=== PATIENT | female | born 1985 | race Caucasian/White ===

== ENCOUNTER → 2022-05-05 14:06 | Outpatient (BNVA) | payer OTHER, SELFPAY | PROVIDERS: Family Provider Family Medicine; PCP Family Medicine; Visit Provider Family Medicine | DX: Z01.419 Encounter for gynecological examination (general) (routine) without abnormal findings (principal); Z80.3 Family history of malignant neoplasm of breast | CPT/HCPCS: 87624 ==

== ENCOUNTER → 2022-06-13 13:20 | Outpatient (BNVA) | payer OTHER, SELFPAY | PROVIDERS: Family Provider Family Medicine; PCP Family Medicine; Visit Provider Family Medicine | DX: Z34.80 Encounter for supervision of other normal pregnancy, unspecified trimester (principal) | CPT/HCPCS: 87086 ==

== ENCOUNTER → 2022-06-27 11:21 | Outpatient (BNVA) | payer OTHER, SELFPAY | PROVIDERS: Family Provider Family Medicine; PCP Family Medicine; Visit Provider Family Medicine | DX: Z34.80 Encounter for supervision of other normal pregnancy, unspecified trimester (principal) | CPT/HCPCS: 76801 ==

== ENCOUNTER → 2022-07-08 12:24 | Outpatient (BNVA) | payer OTHER, SELFPAY | PROVIDERS: Family Provider Family Medicine; PCP Family Medicine; Visit Provider Clinical Nurse Specialist Adult Health | DX: J02.9 Acute pharyngitis, unspecified (principal) | CPT/HCPCS: 87880 ==

== ENCOUNTER → 2022-07-13 09:34 | Outpatient (BNVA) | payer OTHER, MEDICAID, SELFPAY | PROVIDERS: Family Provider Family Medicine; PCP Family Medicine; Visit Provider Family Medicine | DX: Z34.80 Encounter for supervision of other normal pregnancy, unspecified trimester (principal); Z01.419 Encounter for gynecological examination (general) (routine) without abnormal findings | CPT/HCPCS: 84443; 85025; 86592; 86762; 86803; 86850; 86900; 87340; 87491; 87591; 87806 ==

== ENCOUNTER → 2022-08-23 12:06 | Outpatient (BNVA) | payer MEDICAID, SELFPAY | PROVIDERS: Family Provider Family Medicine; PCP Family Medicine; Visit Provider Family Medicine | DX: Z34.80 Encounter for supervision of other normal pregnancy, unspecified trimester (principal) | CPT/HCPCS: 80307; 81000; 81511; 87086 ==

== ENCOUNTER → 2022-08-29 09:00 | Outpatient (BNVA) | payer MEDICAID, SELFPAY | PROVIDERS: Family Provider Family Medicine; PCP Family Medicine; Visit Provider Family Medicine | DX: Z34.80 Encounter for supervision of other normal pregnancy, unspecified trimester (principal); Z3A.00 Weeks of gestation of pregnancy not specified | CPT/HCPCS: 76805 ==

== ENCOUNTER → 2022-10-20 09:22 | Outpatient (BNVA) | payer MEDICAID, SELFPAY | PROVIDERS: Family Provider Family Medicine; PCP Family Medicine; Visit Provider Family Medicine | DX: Z34.80 Encounter for supervision of other normal pregnancy, unspecified trimester (principal); L29.9 Pruritus, unspecified; Z51.81 Encounter for therapeutic drug level monitoring | CPT/HCPCS: 80053; 82010; 82950; 85025 ==

== ENCOUNTER → 2022-12-22 08:55 | Outpatient (BNVA) | payer OTHER, MEDICAID, SELFPAY | PROVIDERS: PCP Family Medicine; Visit Provider Family Medicine | DX: Z34.80 Encounter for supervision of other normal pregnancy, unspecified trimester (principal) | CPT/HCPCS: 87081; 87184 ==

== ENCOUNTER 2023-01-18 08:21 | Inpatient (IN) | payer OTHER, MEDICAID, SELFPAY ==
[2023-01-18] VITALS (50 sets, daily range): BP systolic 115–194; BP diastolic 61–94; PULSE 73–116; RESP 15–16; TEMP 36.1–36.5; BMI 24.2
--- NOTE | 2023-01-18 08:29 | PM.HP ---
Providers/Chief Complaint Admitting Physician: Toni Guadarrama MD Primary Care Provider: Toni Guadarrama MD Chief Complaint: induction History of Present Illness Ellen Lugo is a 37 year old @ 40.2 weeks by LMP c/w 1st TM US. Preg c/b with clavicular fracture without shoulder dystocia, h/o macrosomic , depression off of meds, GBS positive. The patient presents to labor and delivery triage for a scheduled induction of labor due to postdates. She feels well at this time. She denies any fevers, chest pain, shortness of breath, nausea, vomiting, constipation, diarrhea, dysuria. She denies leakage of fluid, vaginal bleeding. She admits to mild nasal congestion after being outside yesterday. Review of Systems Narrative: See HPI. Medications/Allergies Home Medications Medication Instructions Recorded Confirmed Last Taken Type cetirizine 10 mg tablet (All Day 10 mg PO DAILY PRN Allergy Symptoms 06/13/22 01/18/23 01/18/23 07:00 History Allergy (cetirizine)) vitamin with calcium 1 tab PO DAILY 06/13/22 01/18/23 01/17/23 History no.72-iron 27 mg-folic acid 1 mg tablet ( Vitamins Plus Low Iron) ferrous sulfate 325 mg (65 mg 325 mg PO DAILY #30 tabs 10/24/22 01/18/23 01/17/23 Rx iron) tablet potassium chloride 10 mEq 10 meq PO DAILY #30 tabs 12/23/22 01/18/23 01/17/23 Rx tablet,extended release (Klor-Con) Allergies Allergy/AdvReac Type Severity Reaction Status Date / Time codeine Allergy Mild ADR-Itching Verified 07/08/22 10:05 penicillin G Allergy Mild ADR-Itching Verified 07/08/22 10:05 PFSH Acute PFSH: Medical History Family hx-breast malignancy Surgical History History of lymph node biopsy Left neck as a child Family History Sister Cancer, Onset Age: 37 History of leukemia (Age 10), breast cancer s/p bilateral mastectomy (Age 37), thyroid cancer Social History Smoking and tobacco status: never smoked Alcohol intake: never Marital status: Additional social history: First committed suicide. Was on drugs. Now remarried. Female Reproductive History: : 4 Vitals/I&O/Wt Last Vital Signs Pulse 116 H 01/18/23 08:21 BP 144/94 01/18/23 08:21 Physical Exam Narrative: General: Alert and oriented x3 Eyes: Pupils equal round and reactive to light and accommodation Mouth: Mucous membranes moist, pharynx non-erythematous Cardiac: Regular rate and rhythm without murmurs Lungs: Clear to auscultation bilaterally without wheezes, crackles or rhonchi Abdomen: Soft, non-tender, fundus consistent with gestational age Extremities: Trace edema in the bilateral lower extremities : Cervix is 3/50/-3/soft/vertex A&P Assessment and plan (1) Supervision of normal intrauterine in multigravida: The patient is doing well at this time. We will proceed with induction of labor as scheduled. We will start with IV Pitocin. The patient is GBS positive. The patient is allergic to penicillin. We will treat GBS with cefazolin and plan for watching for 48 hours afterwards. All questions were answered. Patient and are in agreement with current plan of care. Attestations Medical Necessity Statement*: The patient will be here for greater than 2 midnights due to routine intrapartum and management of labor and delivery. Coding Level of Care Code Acute Code for Chg Fwd Diagnoses Supervision of normal intrauterine in multigravida Z34.80
[2023-01-18 09:02] LABS: Basophils % 0.3 %; Eosinophils # 0.1 10^3/uL (0.0-0.8); Eosinophils % 0.9 %; Hematocrit 37.1 % (37.0-47.0); Hemoglobin 12.5 g/dL (11.5-15.3); Lymphocytes % 13.2 %; Mean Corpuscular HGB Conc 33.7 g/dL (30.0-36.0); Mean Corpuscular Hemoglobin 29.8 pg (28.0-34.0); Mean Corpuscular Volume 88.5 fl (81-99); Mean Platelet Volume 10.3 fL (7.4-10.4); Monocytes # 0.3 10^3/uL (0.2-0.9); Monocytes % 4.3 %; Neutrophils # 6.37 10^3/uL (1.8-7.7); Neutrophils % 80.8 %; Nucleated Red Blood Cells % 0 %; Platelet Count 203 10^3/cmm (130-400); Red Blood Count 4.19 10^6/uL (4.1-5.3); Red Cell Distribution Width 15.2 % (12.1-15.1); White Blood Count 7.9 10^3/uL (4.0-10.0)
[2023-01-18] MEDS: dextrose 5%-lactated ringers 1,000 ML 125 ML IV (09:09)
[2023-01-18] MEDS: ceFAZolin 2,000 MG in sodium chloride 0.9% (plus) 50 ML 100 MG IV (09:11)
[2023-01-18] MEDS: lactated ringers 1,000 ML 999 ML IV (16:15)
[2023-01-18] MEDS: ceFAZolin 1,000 MG in sodium chloride 0.9% (plus) 50 ML 100 MG IV (17:20)
--- NOTE | 2023-01-18 18:20 | P.PCNOB_ITS ---
Delivery Note: Date of delivery: January 18, 2023 Pre-delivery diagnoses: 1. Intrauterine at 40.2 weeks gestation 2. History of macrosomic infant 3. Depression off of medication 4. GBS positive Post-delivery diagnoses: 1. Intrauterine status post spontaneous vaginal delivery at 40.2 weeks gestation 2. History of macrosomic 3. Depression off of medication 4. GBS positive 5. Delivery of healthy female weighing 8 pounds 6 ounces with Apgars of 8 and 9 Procedure: Spontaneous vaginal delivery Delivering Physician: Toni Guadarrama MD Estimated blood loss (mL): 100 Pre-Delivery Course: Ellen Lugo is a 37 year old @ 40.2 weeks by LMP c/w 1st TM US. Preg c/b with clavicular fracture without shoulder dystocia, h/o macrosomic infant, depression off of meds, GBS positive. The patient presented for an induction of labor secondary to postdates on the morning of 01/18/2023. She was 3 cm dilated upon presentation. The patient was started on IV Pitocin for induction of labor. She was started on cefazolin for GBS prophylaxis. She made steady change initially and was getting set up for a laboring epidural. She then quickly changed to 7 cm and then to complete. She was complete by 1728 on 01/18/2023. Delivery: A bulging bag of fluid was noted and AROM was performed at 1742 on 01/18/2023. The patient began pushing at 1743 on 01/18/2023. The patient pushed well and the infant delivered in the OA position at 1746 on 01/18/2023. The right shoulder was the anterior shoulder, however it was rotated to the right. The left shoulder was delivered first due to the right shoulder not delivering well with downward pressure. The right shoulder was then delivered without complication. No nuchal cord was noted. The infant was crying immediately upon delivery and the infant's mouth and nose were bulb suctioned by myself. The was placed on the mother's lap for the nurses were waiting to care for her. Cord blood was obtained. The cord was then drained of blood and traction was placed on umbilical cord. The placenta delivered without complication at 1752 on 01/18/2023. The placenta was noted to be intact with a central umbilical cord insertion site. The vaginal wall was inspected and there was a small perineal abrasion. The cervix was inspected and no lacerations were noted. The patient's bleeding decreased well. Her uterus was noted to be firm and midline. Currently both the mother and infant are doing well. History History History 4 Term 4 0 Miscarriages/Ectopic 0 Living Children 4 Past Pregnancies Del. Date GA/Weeks Outcome Route Wt Inf Gender Labor Lgth Comp. Anesth esia Location 04/10/06 40 live - full term Vaginal 7 lb 3 oz Female 18 [facility] 06/12/08 40 live - full term Vaginal 10 lb Male 8 [facility] 04/08/17 40 live - full term Vaginal 7 lb 6 oz Male [facility] 01/18/23 40 live - full term Vaginal 8 lb 6 oz Female 8 [facility] Delivery Date: 06/12/08 Last Updated by: Toni Guadarrama MD Broken Clavicle - No shoulder dystocia Delivery Date: 04/08/17 Last Updated by: Toni Guadarrama MD No complications. Delivery Date: 01/18/23 Last Updated by: Toni Guadararma MD Rapid change from 5 to complete A&P Assessment and plan (1) Spontaneous vaginal delivery: Coding Level of Care Code Acute Code for Chg Fwd Diagnoses Spontaneous vaginal delivery O80
[2023-01-18] MEDS: lanolin oint 7 gm 1 APPLIC TOPICAL (19:28)
[2023-01-18] MEDS: ibuprofen 800 mg tablet PO (19:28)
[2023-01-18] MEDS: benzocaine-menthol 78 gm Canister 1 SPRAY TOPICAL (19:29)
[2023-01-19 01:45] VITALS: BP 121/81; PULSE 76; RESP 16
[2023-01-19] MEDS: acetaminophen 325 mg Tablet 650 MG PO (02:44)
[2023-01-19 03:45] VITALS: BP 116/73; PULSE 77; RESP 18
[2023-01-19 05:51] LABS: Hematocrit 34.5 % (37.0-47.0); Hemoglobin 11.6 g/dL (11.5-15.3); Mean Corpuscular HGB Conc 33.6 g/dL (30.0-36.0); Mean Corpuscular Hemoglobin 30.1 pg (28.0-34.0); Mean Corpuscular Volume 89.4 fl (81-99); Mean Platelet Volume 9.9 fL (7.4-10.4); Platelet Count 196 10^3/cmm (130-400); Red Blood Count 3.86 10^6/uL (4.1-5.3); Red Cell Distribution Width 15.2 % (12.1-15.1); White Blood Count 12.4 10^3/uL (4.0-10.0)
[2023-01-19] MEDS: ibuprofen 800 mg tablet PO ×2 (09:37→14:32)
[2023-01-19] MEDS: prenatal vitamin Capsule 1 CAP PO (09:37)
[2023-01-19] MEDS: docusate sodium 100 mg Capsule PO (09:37)
[2023-01-19 10:09] VITALS: BP 112/87; PULSE 117; RESP 18; TEMP 36.8; O2SAT 98
[2023-01-19 16:30] VITALS: BP 123/84; PULSE 86; RESP 16; TEMP 36.6; O2SAT 98
--- NOTE | 2023-01-19 19:23 | PM.DCS ---
Discharge Providers Date of Admission: 01/18/23 08:21 Date of Discharge: January 19, 2023 Attending Provider at Admission: Toni Guadarrama MD Attending Provider at Discharge: Toni Guadarrama MD Primary Care Provider: Toni Guadarrama MD Diagnoses at Discharge Discharge Diagnosis (1) Spontaneous vaginal delivery: Status: Resolved Other Information Additional DC diagnoses/information: 1.? Intrauterine status post spontaneous vaginal delivery at 40.2 weeks gestation 2.? History of macrosomic 3.? Depression off of medication 4.? GBS positive 5.? Delivery of healthy female weighing 8 pounds 6 ounces with Apgars of 8 and 9 Reason for Visit Reason for Visit: induction Brief History: Ellen Lugo is a 37 year old @ 40.2 weeks by LMP c/w 1st TM US. Preg c/b with clavicular fracture without shoulder dystocia, h/o macrosomic infant, depression off of meds, GBS positive. The patient presented for an induction of labor secondary to postdates on the morning of 01/18/2023.? She was 3 cm dilated upon presentation.? ? Procedure: Spo ntaneous vaginal d elivery ? Deliveri ng Physician: Seun Guadarrama MD ? E stimated blood los s (mL): 100 Pre-Delivery Cours e:?? Delivery:?? Hospital Course Hospital Course The patient was started on IV Pitocin for induction of labor.? She was started on cefazolin for GBS prophylaxis.? She made steady change initially and was getting set up for a laboring epidural.? She then quickly changed to 7 cm and then to complete.? She was complete by 1728 on 01/18/2023. A bulging bag of fluid was noted and AROM was performed at 1742 on 01/18/2023.? The patient began pushing at 1743 on 01/18/2023.? The patient pushed well and the delivered in the OA position at 1746 on 01/18/2023.? The right shoulder was the anterior shoulder, however it was rotated to the right.? The left shoulder was delivered first due to the right shoulder not delivering well with downward pressure.? The right shoulder was then delivered without complication.? No nuchal cord was noted.? The was crying immediately upon delivery and the infant's mouth and nose were bulb suctioned by myself.? The infant was placed on the mother's lap for the nurses were waiting to care for her.? Cord blood was obtained.? The cord was then drained of blood and traction was placed on umbilical cord.? The placenta delivered without complication at 1752 on 01/18/2023.? The placenta was noted to be intact with a central umbilical cord insertion site.? The vaginal wall was inspected and there was a small perineal abrasion.? The cervix was inspected and no lacerations were noted.? The patient's bleeding decreased well.? Her uterus was noted to be firm and midline.? the patient has done well without complications. Her pain is well controlled. Her bleeding is decreasing well. The patient is ambulating, voiding, passing gas and tolerating food by mouth. All questions were answered. Routine discharge instructions were discussed. The patient is in agreement with discharge home at this time and will follow up with me at 6 weeks or sooner if needed. Physical Exam Narrative: General: Alert and oriented x3 Cardiac: Regular rate and rhythm without murmurs Lungs: Clear to auscultation bilaterally without wheezes, crackles or rhonchi Abdomen: Soft, mild tenderness over uterus. The uterus is firm and 2 cm below the umbilicus. Extremities: Trace edema in the bilateral lower extremities Discharge Data Studies Completed and Pending Laboratory Results WBC 12.4 10^3/uL (4.0-10.0) H 01/19/23 05:45 RBC 3.86 10^6/uL (4.1-5.3) L 01/19/23 05:45 Hgb 11.6 g/dL (11.5-15.3) 01/19/23 05:45 Hct 34.5 % (37.0-47.0) L 01/19/23 05:45 MCV 89.4 fl (81-99) 01/19/23 05:45 MCH 30.1 pg (28.0-34.0) 01/19/23 05:45 MCHC 33.6 g/dL (30.0-36.0) 01/19/23 05:45 RDW 15.2 % (12.1-15.1) H 01/19/23 05:45 Plt Count 196 10^3/cmm (130-400) 01/19/23 05:45 MPV 9.9 fL (7.4-10.4) 01/19/23 05:45 Neut % (Auto) 80.8 % 01/18/23 08:45 Lymph % (Auto) 13.2 % 01/18/23 08:45 [place] % (Auto) 4.3 % 01/18/23 08:45 Eos % (Auto) 0.9 % 01/18/23 08:45 Baso % (Auto) 0.3 % 01/18/23 08:45 Neut # (Auto) 6.37 10^3/uL (1.8-7.7) 01/18/23 08:45 Lymph # (Auto) 1.0 10^3/uL (0.8-4.8) 01/18/23 08:45 [place] # (Auto) 0.3 10^3/uL (0.2-0.9) 01/18/23 08:45 Eos # (Auto) 0.1 10^3/uL (0.0-0.8) 01/18/23 08:45 Baso # (Auto) 0.0 10^3/uL (0.0-0.1) 01/18/23 08:45 Nucleated RBC % (auto) 0 % 01/18/23 08:45 Nucleated RBCs # 0.0 /100WBC 01/18/23 08:45 Vitals Last Vital Signs Temp 97.9 F 01/19/23 16:30 Pulse 86 01/19/23 16:30 Resp 16 01/19/23 16:30 BP 123/84 01/19/23 16:30 Pulse Ox 98 01/19/23 16:30 O2 Del Method Room Air 01/19/23 10:09 Discharge Plan Discharge Patient Disposition: Home Condition: Good Prescriptions: New ibuprofen 800 mg Tablet 800 mg PO TID Qty: 30 0RF Continued ferrous sulfate 325 mg (65 mg iron) tablet 325 mg PO DAILY Qty: 30 2RF Vitamin Plus Low Iron 27 mg iron- 1 mg tablet 1 tab PO DAILY cetirizine [All Day Allergy (cetirizine)] 10 mg tablet 10 mg PO DAILY PRN (Reason: Allergy Symptoms) Discontinued potassium chloride [Klor-Con 10] 10 mEq tablet extended release 10 meq PO DAILY Qty: 30 3RF Discharge Orders: Discharge Order (Routine); Ordered 01/19/23 Ordered By: Toni Guadarrama Referrals: Toni Guadarrama MD [Primary Care Provider] - 6 Weeks Discharge Diet: Regular Discharge Activity: Increase activity as tolerated Patient Instructions: Depression (DC), Bleeding (DC), Preeclampsia and Eclampsia After Delivery (GEN), Hemorrhage (DC), OB Discharge Report, OB Feeding Plan, OB Care at Home, Opioid Safety, OB Home Care, OB Proud Parent Packet, OB Vaginal Deliveries Activity Restrictions/Additional Instructions: -Nothing per vagina for 6 weeks. -Showers are recommended instead of baths for the first 6 weeks. -If you have any concerns prior to your appointment, please feel free to contact Dr. Guadarrama's office for sooner evaluation. -Call the clinic on 01/20/23 to make a Monday follow up appointment with Dr. Guadarrama. Discharge Attestations Time Spent in Discharge Care*: less than 30 min Quality Metrics Clinical Quality Measures [ No reported AMI, CVA or VTE this stay] Coding Level of Care Code Acute Code for Chg Fwd Diagnoses Spontaneous vaginal delivery O80
[2023-01-19 19:33] VITALS: BP 124/86; PULSE 93; RESP 16; TEMP 36.7; O2SAT 99
== END 2023-01-19 20:13 | disposition home or self-care (01) | DRG 807 ==
LOC: OBGYN 12:32 → OPOB 01-23 07:19
PROVIDERS: Admitting Provider Family Medicine; PCP Family Medicine; Visit Provider Family Medicine
DX: O48.0 Post-term pregnancy (principal); Z37.0 Single live birth; O99.824 Streptococcus B carrier state complicating childbirth; O99.344 Other mental disorders complicating childbirth; F32.A Depression, unspecified; Z3A.40 40 weeks gestation of pregnancy; Z87.59 Personal history of other complications of pregnancy, childbirth and the puerperium
CPT/HCPCS: 36415; 59025; 59409; 85025; 85027; 99211; J0690; J7040; J7120; J7121

== ENCOUNTER → 2024-02-08 10:24 | Outpatient (BNVA) | payer OTHER, SELFPAY | PROVIDERS: PCP Family Medicine; Visit Provider Family Medicine | DX: Z34.90 Encounter for supervision of normal pregnancy, unspecified, unspecified trimester (principal); R30.0 Dysuria | CPT/HCPCS: 80307; 81000; 81025; 87086; 87491; 87591 ==

== ENCOUNTER 2024-02-16 13:08 | Outpatient (CLI) | payer OTHER, SELFPAY ==
--- NOTE | 2024-02-16 13:30 | US_ITS ---
WS: [id number] EARLY OBSTETRICAL ULTRASOUND (<14 WEEKS). HISTORY: Dating US - In the next 1-2 weeks if possible COMPARISON: None available. Single intrauterine gestational sac is identified. Cardiac activity at 147 BPM. Vancleave-rump length mary sures 5.5 cm which corresponds to a gestation of 12w0d. Normal-appearing yolk sac and amnion demonstr ated. No subchorionic hemorrhage. No free fluid. Normal size ovaries with no mass. US/US OB <= 14 weeks fetus [id number] IMPRESSION: 1. Single intrauterine gestation of 12w0d with an EDC of 08/30/2024. 2. Normal cardiac activity.
== END 2024-02-16 13:09 | disposition home or self-care (01) ==
LOC: RAD 13:08
PROVIDERS: PCP Family Medicine; Visit Provider Family Medicine
DX: Z34.81 Encounter for supervision of other normal pregnancy, first trimester (principal); Z3A.12 12 weeks gestation of pregnancy
CPT/HCPCS: 76801

== ENCOUNTER → 2024-03-15 10:42 | Outpatient (BNVA) | payer OTHER, SELFPAY | PROVIDERS: PCP Family Medicine; Visit Provider Family Medicine | DX: O09.529 Supervision of elderly multigravida, unspecified trimester (principal); Z3A.00 Weeks of gestation of pregnancy not specified | CPT/HCPCS: 81511; 84144; 84443; 84702; 85025; 86592; 86762; 86803; 86850; 86900; 87340; 87806 ==

== ENCOUNTER 2024-04-12 12:15 | Outpatient (CLI) | payer OTHER, SELFPAY ==
--- NOTE | 2024-04-12 12:15 | USR_ITS ---
PROCEDURE INFORMATION: Exam: US After First Trimester, Transabdominal Exam date and time: 04/12/2024 12:42 PM Age: 38 years old Clinical indication: Screening exam; Routine US, uterus; Additional info: Anatomy US - 4 weeks from now LABS AND CLINICAL REPORTS: Gestational age (Established): 20 w 0 d Estimated due date (Established): 08/30/2024 TECHNIQUE: Imaging protocol: Real-time transabdominal obstetrical ultrasound of the maternal pelvis and a second or third trimester with image documentation. COMPARISON: US OB <= 14 weeks fetus [id number] 02/16/2024 1:21 PM FINDINGS: Gestation: Single living intrauterine fetus heart rate: 142 bpm presentation and position: Breech Placenta: Unremarkable. No subchorionic bleed. Placenta is posterior. Amniotic fluid (Qualitative): Amniotic fluid is normal for gestational age. ANATOMY: midline falx: Normal cerebellum: Normal lateral ventricles: Normal cisterna magna: Normal choroid plexus: Normal face: Upper lip is normal heart four-chamber view, heart size and position: Normal heart right ventricular outflow tract: Normal heart left ventricular outflow tract: Normal kidneys: Normal stomach: Normal urinary bladder: Normal spine: Normal Umbilical cord and insertion: Normal upper limbs: Normal lower limbs: Normal external genitalia: Male BIOMETRY: Gestational age (AUA): EGA Estimated due date (AUA): FABIENNE Estimated weight: 317.57 g. EFW by AC, BPD, FL, HC, [place] 1985 Biparietal diameter (BPD): 4.61 cm. EGA (BPD) is 20 w 0 d. 47.1 % percentile Head circumference (HC): 17.66 cm. EGA (HC) is 20 w 1 d. 49.1 % percentile Abdominal circumference (AC): 14.52 cm. EGA (AC) is 19 w 6 d. 38.6 % percentile Femur length (FL): 3.16 cm. EGA (FL) is 19 w 6 d. 35.7 % percentile HC/AC: 1.22. (Normal range: 1.08 - 1.25) FL/HC: 17.89. (Normal range: 16.8 - 19.8) FL/BPD: 68.55 FL/AC: 21.76 MATERNAL: Uterus: Unremarkable. Cervix: Cervical length measures 4.3 cm. Right ovary/adnexa: Obscured by lack of adequate acoustic window. Left ovary/adnexa: Obscured by lack of adequate acoustic window. Intraperitoneal space: No intraperitoneal free fluid. US/US OB >= 14 weeks fetus [id number] IMPRESSION: Single living intrauterine fetus in breech presentation with a sonographically estimated gestational age of 20 weeks 0 days and corresponding estimated date of delivery of 08/30/2024, consistent with the previously established gestational age
== END 2024-04-12 12:16 | disposition home or self-care (01) ==
PROVIDERS: PCP Family Medicine; Visit Provider Family Medicine
DX: Z34.02 Encounter for supervision of normal first pregnancy, second trimester (principal); Z3A.20 20 weeks gestation of pregnancy
CPT/HCPCS: 76805

== ENCOUNTER → 2024-05-17 09:32 | Outpatient (BNVA) | payer OTHER, SELFPAY | PROVIDERS: PCP Family Medicine; Visit Provider Family Medicine | DX: Z34.80 Encounter for supervision of other normal pregnancy, unspecified trimester (principal); Z3A.00 Weeks of gestation of pregnancy not specified | CPT/HCPCS: 82950 ==

== ENCOUNTER → 2024-07-11 14:06 | Outpatient (BNVA) | payer OTHER, SELFPAY | PROVIDERS: PCP Family Medicine; Visit Provider Family Medicine | DX: Z34.80 Encounter for supervision of other normal pregnancy, unspecified trimester (principal); Z51.81 Encounter for therapeutic drug level monitoring | CPT/HCPCS: 85025 ==

== ENCOUNTER → 2024-08-08 08:45 | Outpatient (BNVA) | payer OTHER, SELFPAY | PROVIDERS: PCP Family Medicine; Visit Provider Family Medicine | DX: Z34.90 Encounter for supervision of normal pregnancy, unspecified, unspecified trimester (principal); Z3A.00 Weeks of gestation of pregnancy not specified | CPT/HCPCS: 87081 ==

== ENCOUNTER 2024-09-02 06:07 | Inpatient (IN) | payer OTHER, SELFPAY ==
[2024-09-02] VITALS (40 sets, daily range): BP systolic 98–141; BP diastolic 65–87; PULSE 78–115; RESP 15–16; TEMP 36.4–36.8; O2SAT 96; BMI 24.7
[2024-09-02 07:13] LABS: Basophils % 0.3 %; Eosinophils # 0.1 10^3/uL (0.0-0.8); Eosinophils % 0.9 %; Hematocrit 36.3 % (36-47); Lymphocytes # 1.3 10^3/uL (0.8-4.8); Lymphocytes % 16.9 %; Mean Corpuscular HGB Conc 32.2 g/dL (30-55); Mean Corpuscular Volume 83.6 fl (85-98); Mean Platelet Volume 10.3 fL (7.4-10.4); Monocytes # 0.4 10^3/uL (0.2-0.9); Monocytes % 5.3 %; Neutrophils # 6.06 10^3/uL (1.8-7.7); Neutrophils % 76.2 %; Nucleated Red Blood Cells % 0 %; Platelet Count 242 10^3/cmm (157-399); Red Blood Count 4.34 10^6/uL (3.85-5.65); Red Cell Distribution Width 14.6 % (12.1-15.1); White Blood Count 7.94 10^3/uL (3.29-11.43)
--- NOTE | 2024-09-02 08:33 | P.HP_ITS ---
Providers/Chief Complaint 2 Admitting Physician: Toni Guadarrama MD Primary Care Provider: Toni Guadarrama MD Chief Complaint: IOL History of Present Illness Ellen Lugo is a 39 year old @ 40.3 wks by 12 wk US inconsistent with LMP. Preg c/b h/o infant with clavicular fracture without shoulder dystocia, h/o macrosomic , depression off of meds, advanced maternal age. The patient presents to labor and delivery for a scheduled induction of labor. She started norma at 6 PM on 09/01/2024. Her contractions have gradually increased and she was 5.5 cm upon arrival. After 2 hours she is currently 6 cm dilated. She is norma every 2 to 3 minutes. She feels well overall. She denies any leaks fluid, vaginal bleeding, chest pains, shortness of breath, nausea, vomiting, diarrhea, constipation, dysuria. Medications/Allergies Home Medications Medication Instructions Recorded Confirmed Last Taken Type vitamin with calcium 1 tab PO DAILY 06/13/22 09/02/24 09/01/24 History no.72-iron 27 mg-folic acid 1 mg tablet ( Vitamins Plus Low Iron) ferrous sulfate 325 mg (65 mg 325 mg PO DAILY #30 tabs 07/11/24 09/02/24 08/31/24 Rx iron) tablet Zyrtec 1 tab PO DAILY 09/02/24 09/02/24 08/31/24 History Allergies Allergy/AdvReac Type Severity Reaction Status Date / Time codeine Allergy Mild ADR-Itching Verified 09/02/24 06:08 penicillin G Allergy Mild ADR-Itching Verified 09/02/24 06:08 PFSH Acute 2 PFSH: Medical History Family hx-breast malignancy Surgical History History of lymph node biopsy Left neck as a child Family History Sister Cancer, Onset Age: 37 History of leukemia (Age 10), breast cancer s/p bilateral mastectomy (Age 37), thyroid cancer Social History Smoking and tobacco/nicotine status: never used tobacco/nicotine Alcohol intake: never Substance/Drug Use: never Additional social history: First committed suicide. Was on drugs. Now remarried. Marital status: Female Reproductive History: : 6 Vitals/I&O/Wt Last Vital Signs Pulse 104 H 09/02/24 08:24 Resp 16 09/02/24 06:19 BP 123/81 09/02/24 08:24 O2 Del Method Room Air 09/02/24 06:32 Weight last 48 hrs Weight 168 lb Weight 168 lb Physical Exam 2 Narrative: General: Alert and oriented x3 Eyes: Pupils equal round and reactive to light and accommodation Mouth: Mucous membranes moist, pharynx non-erythematous Cardiac: Regular rate and rhythm without murmurs Lungs: Clear to auscultation bilaterally without wheezes, crackles or rhonchi Abdomen: Soft, non-tender, fundus consistent with gestational age Extremities: No edema in the bilateral lower extremities Data 09/02/24 06:30 A&P Assessment and plan (1) Supervision of high risk , unspecified, third trimester: The patient is doing well overall. heart tones are currently in the mid 140s with moderate variability good accelerations with a category 1 tracing. She is norma every 2 to 4 minutes. We let her walk for 2 hours to see if she would make change on her own. She changed half a centimeter during that timeframe. For this reason we will go ahead and add IV Pitocin to augment labor. The patient may have a laboring epidural if she would like. The patient is doing well overall at this time. Proceed with routine intrapartum management. Attestations 2 Medical Necessity Statement*: The patient will be here for greater than 2 midnights due to routine intrapartum and management of labor and delivery. Coding Level of Care Code Acute Code for Chg Fwd Diagnoses Supervision of high risk , unspecified, third trimester O09.93
[2024-09-02] MEDS: lactated ringers 1,000 ML 999 ML IV (08:51)
--- NOTE | 2024-09-02 10:00 | P.ANESASSM_ITS ---
Pre-Anesthetic Assessment Height/Weight: Height 5 ft 9 in Weight 168 lb Pulse Resp BP O2 Del Method 92 16 121/78 Room Air 09/02/24 10:41 09/02/24 06:19 09/02/24 10:41 09/02/24 06:32 Preop Diagnosis: requesting epidural Was Beta Mounika taken within 24 hours: N/A Was Clonidine taken within 24 hours: N/A Social No alcohol and No tobacco Exam alert, oriented x 3, clear to auscultation bilaterally and regular rate & rhythm Airway Submandibular: within normal limits Cervical ROM: within normal limits Mallampati: Class I Dentition: full Anesthetic Plan ASA status: 2 Anesthesia: Regional (specify below) Other: G6, P4 at 40 weeks and 3 days requesting epidural Denies any issues with previous epidurals Labs reviewed acceptable for procedure No issues during METs greater than 4 Plan for routine epidural placement Medications/Allergies Home Medications Medication Instructions Recorded Confirmed Last Taken Type vitamin with calcium 1 tab PO DAILY 06/13/22 09/02/24 09/01/24 History no.72-iron 27 mg-folic acid 1 mg tablet ( Vitamins Plus Low Iron) ferrous sulfate 325 mg (65 mg 325 mg PO DAILY #30 tabs 07/11/24 09/02/24 08/31/24 Rx iron) tablet Zyrtec 1 tab PO DAILY 09/02/24 09/02/24 08/31/24 History Allergies Allergy/AdvReac Type Severity Reaction Status Date / Time codeine Allergy Mild ADR-Itching Verified 09/02/24 06:08 penicillin G Allergy Mild ADR-Itching Verified 09/02/24 06:08 Current Medications Generic Name Dose Route Start Last Admin Trade Name Trentq PRN Reason Stop Dose Admin Dextrose/Lactated Ringer's 1,000 mls @ 125 mls/hr 09/02/24 07:15 09/02/24 10:11 Dextrose 5%-Lactated Ringers IV 125 mls/hr .Q8H LIANG Administration Oxytocin 30 unit in 500 mls @ 1 mls/hr 09/02/24 08:45 09/02/24 10:19 Pitocin IV 2 milliunit/min .Q24H LIANG 2 mls/hr Administration Protocol 1 MILLIUNIT/MIN Lactated Ringer's 1,000 mls @ 999 mls/hr 09/02/24 08:47 09/02/24 08:51 Lactated Ringers IV 999 mls/hr .Q1H1M PRN Administration See label comments Ropivacaine 100 mg in 50 mls @ 10 mls/hr 09/02/24 09:00 09/02/24 10:11 Naropin Syringe EPIDURAL 12 mls/hr .Q5H LIANG Administration PFSH Anesthesia Medical History Family hx-breast malignancy Surgical History History of lymph node biopsy Left neck as a child Family History Sister Cancer, Onset Age: 37 History of leukemia (Age 10), breast cancer s/p bilateral mastectomy (Age 37), thyroid cancer Social History Smoking and tobacco/nicotine status: never used tobacco/nicotine Alcohol intake: never Substance/Drug Use: never Additional social history: First committed suicide. Was on drugs. Now remarried. Marital status: Female Reproductive History : 6 Data Anesthesia 09/02/24 06:30 Short CBC 09/02/24 Range/Units 06:30 WBC 7.94 (3.29-11.43) 10^3/uL Hgb 11.70 (11.27-16.99) g/dL Hct 36.3 (36-47) % MCV 83.6 L (85-98) fl Plt Count 242 (157-399) 10^3/cmm Neut % (Auto) 76.2 % Neut # (Auto) 6.06 (1.8-7.7) 10^3/uL Blood Bank 09/02/24 06:30 Blood Type O Positive Rho(D) Type Rh positive Antibody Screen Negative Cardiac Studies: 2 No Data to Display
[2024-09-02] MEDS: dextrose 5%-lactated ringers 1,000 ML 125 ML IV ×2 (10:11→12:35)
[2024-09-02] MEDS: ROPivacaine syringe 100 MG/50 ML SYRINGE 12 MG EPIDURAL ×2 (10:11→12:35)
[2024-09-02] MEDS: oxytocin 30 UNIT/500 ML BAG IV (10:19)
--- NOTE | 2024-09-02 10:20 | P.ANES_ITS ---
Anesthesia Procedures Procedure/Date: 09/02/24 Epidural: Time Out Performed: Yes Consents Signed: Procedure Consent Consent: requested by attending/covering physician and from patient Lumbar Level: L3-L4 Epidural position: sitting Epidural procedure: sterile prep of area, 1% lidocaine to numb the area, 18 g needle, negative for paresthesia p assed, neg for paresthesia, test dose given, 1.5% xylocaine 1:200k epi, 0.2% Ropivacaine bolus ml, placed PCEA, no systemic response, sterile dressing applied, L.U.D. no apparent complications and 0.2% Ropiavacaine @ mls/hr Additional Comments: Ropivacaine 0.2% set at 12 mL/h
--- NOTE | 2024-09-02 13:38 | PM.DELIVERY ---
Delivery Note: Date of delivery: September 02, 2024 Pre-delivery diagnoses: 1. Intrauterine at 40.3 weeks gestation 2. History of with clavicular fracture 3. History of macrosomic 4. Depression off medications 5. Advanced maternal age Post-delivery diagnoses: 1. Intrauterine status post spontaneous vaginal delivery at 40.3 weeks gestation 2. History of with clavicular fracture 3. History of macrosomic infant 4. Depression off medications 5. Advanced maternal age 6. Delivery of healthy infant male weighing 8 pounds 14 ounces with Apgars of 6 and 9 Procedure: Spontaneous vaginal delivery Delivering Physician: Toni Guadarrama MD Estimated blood loss (mL): 100 Findings: 1. Healthy male weighing 8 pounds 14 ounces with Apgars of 6 and 9 2. Intact placenta with central umbilical cord insertion site. Pre-Delivery Course: Ellen Lugo is a 39 year old G6 now P5 status post spontaneous vaginal delivery @ 40.3 wks by 12 wk US inconsistent with LMP. Preg c/b h/o with clavicular fracture without shoulder dystocia, h/o macrosomic , depression off of meds, advanced maternal age. The patient presented to labor and delivery for a scheduled induction of labor. She started norma at 6 PM on 09/01/2024. Her contractions gradually increased and she was 5.5 cm upon arrival. After 2 hours she was 6 cm dilated and norma every 2 to 3 minutes. In order to augment the labor process, IV Pitocin was added to help strengthen contractions. A laboring epidural was given. The patient made gradual change and had spontaneous rupture of membranes at 1239 on 09/02/2024. The fluid was light yellow and indeterminant for any meconium present. The patient then made more rapid change and was complete by 12:55 PM on 09/02/2024. Delivery: The patient began pushing at 1302 on 09/02/2024. The patient pushed well and the delivered in the OA position at 1317 on 09/02/2024. A nuchal cord was present. This was reduced prior to delivery of the rest of the infant. The 's shoulders were sideways in the canal with the left shoulder being on the maternal left. This made for a very tight squeeze and with steady pulling pressure opposite the left shoulder, the left shoulder delivered first followed by the right shoulder. The infant delivered with steady pulling after the shoulders were delivered. The delivery process took approximately 1 minute from the delivery of the head to the delivery of the rest of the infant. The infant's mouth and nose were bulb suction by myself. The infant was breathing immediately upon delivery, and was placed on the mother's chest where the nurses were waiting to care for him. After stimulation, the infant perked up and became more vigorous. The cord was clamped and cut by myself after approximately 1 minute. Cord blood was obtained. The cord was then drained of blood and traction was placed on the umbilical cord. The placenta delivered without complication at 1321 on 09/02/2024. The placenta was noted to be intact with a central umbilical cord insertion site. The cervix was inspected and no lacerations were noted. Uterine massage was carried out. The uterus was noted to be firm and midline. The vaginal wall was inspected and a very small abrasion was noted on the perineal region. No suturing was needed. Estimated blood loss was 100 mL. Currently both the mother and infant are doing well. History History History 6 Term 5 0 Miscarriages/Ectopic 1 Living Children 5 Past Pregnancies Del. Date GA/Weeks Outcome Route Wt Inf Gender Labor Lgth Comp. Anesthesia Location 04/10/06 40 live - full term Vaginal 7 lb 3 oz Female 18 [facility] 06/12/08 40 live - full term Vaginal 10 lb Male 8 Other [facility] 04/08/17 40 live - full term Vaginal 7 lb 6 oz Male [facility] 01/18/23 40 live - full term Vaginal 8 lb 6 oz Female 8 [facility] 09/02/24 40 live - full term Vaginal 8 lb 14 oz [facility]: [facility]08 Last Updated by: Toni Guadarrama MD Broken Clavicle - No shoulder dystocia Delivery Date: 04/08/17 Last Updated by: Toni Guadarrama MD No complications. Delivery Date: 01/18/23 Last Updated by: Toni Guadarrama MD Rapid change from 5 to complete Delivery Date: 09/02/24 Last Updated by: Toni Guadarrama MD Difficult delivery - body dystocia not shoulder dystocia, no other complications A&P Assessment and plan (1) Spontaneous vaginal delivery: The patient is doing well overall at this time. We will proceed with routine care. Plan for discharge home tomorrow if everything goes as planned. Coding Level of Care Code Acute Code for Chg Fwd Diagnoses Spontaneous vaginal delivery O80
[2024-09-02] MEDS: ibuprofen 800 mg tablet PO (20:08)
[2024-09-02] MEDS: docusate sodium 100 mg Capsule PO (20:09)
[2024-09-03 01:32] LABS: Hematocrit 30.7 % (36-47); Mean Corpuscular HGB Conc 32.2 g/dL (30-55); Mean Corpuscular Hemoglobin 26.7 pg (27-33); Mean Corpuscular Volume 82.7 fl (85-98); Platelet Count 229 10^3/cmm (157-399); Red Blood Count 3.71 10^6/uL (3.85-5.65); Red Cell Distribution Width 14.5 % (12.1-15.1); White Blood Count 10.56 10^3/uL (3.29-11.43)
[2024-09-03 05:38] VITALS: BP 116/77; PULSE 80; RESP 16; TEMP 36.4; O2SAT 97
[2024-09-03] MEDS: PRENATAL VIT NO.130/IRON/FOLIC 1 EACH TABLET PO (08:44)
[2024-09-03] MEDS: docusate sodium 100 mg Capsule PO (08:44)
[2024-09-03] MEDS: ibuprofen 800 mg tablet PO (08:44)
--- NOTE | 2024-09-03 08:54 | P.DS_ITS ---
Discharge Providers Date of Admission: 09/02/24 06:07 Date of Discharge: September 03, 2024 Attending Provider at Admission: Toni Guadarrama MD Attending Provider at Discharge: Toni Guadarrama MD Primary Care Provider: Toni Guadarrama MD Diagnoses at Discharge Discharge Diagnosis (1) Spontaneous vaginal delivery: Status: Resolved Other Information Additional DC diagnoses/information: 1. Intrauterine status post spontaneous vaginal delivery at 40.3 weeks gestation 2. History of with clavicular fracture 3. History of macrosomic infant 4. Depression off medications 5. Advanced maternal age 6. Delivery of healthy infant male weighing 8 pounds 14 ounces with Apgars of 6 and 9 Reason for Visit Reason for Visit: IOL Brief History: Ellen Lugo is a 39 year old G6 now P5 status post spontaneous vaginal delivery @ 40.3 wks by 12 wk US inconsistent with LMP. Preg c/b h/o infant with clavicular fracture without shoulder dystocia, h/o macrosomic , depression off of meds, advanced maternal age. The patient presented to labor and delivery for a scheduled induction of labor. She started norma at 6 PM on 09/01/2024. Her contractions gradually increased and she was 5.5 cm upon arrival. After 2 hours she was 6 cm dilated and norma every 2 to 3 minutes. Hospital Course Hospital Course In order to augment the labor process, IV Pitocin was added to help strengthen contractions. A laboring epidural was given. The patient made gradual change and had spontaneous rupture of membranes at 1239 on 09/02/2024. The fluid was light yellow and indeterminant for any meconium present. The patient then made more rapid change and was complete by 12:55 PM on 09/02/2024. The patient delivered at 1317 on 09/02/2024. It was a tight squeeze for the infant, however there were no complications otherwise. , the patient has done well. Her bleeding is decreasing well. She is ambulating, voiding, passing gas and tolerating food by mouth. She does have increased pain with cramping related to breast-feeding. She is taking Motrin for this. Routine discharge instructions were discussed. All questions were answered. The patient is in agreement with discharge home at this time. We will plan to follow-up at 6 weeks or sooner if needed. Physical Exam Urinary Catheter Management: Latex Free: Cath Placed During This Visit: yes, but has since been removed by the nurse Reason for Continuing Indwelling Catheter: Other Urinary Catheter Date of Insertion: 09/02/24 Urinary Catheter Time of Insertion: 10:35 Date Urinary Catheter Removed: 09/02/24 Time Urinary Catheter Discontinued: 13:00 Discharge Data Studies Completed and Pending Laboratory Results WBC 10.56 10^3/uL (3.29-11.43) 09/03/24 01:23 RBC 3.71 10^6/uL (3.85-5.65) L 09/03/24 01:23 Hgb 9.90 g/dL (11.27-16.99) L 09/03/24 01:23 Hct 30.7 % (36-47) L 09/03/24 01:23 MCV 82.7 fl (85-98) L 09/03/24 01:23 MCH 26.7 pg (27-33) L 09/03/24 01:23 MCHC 32.2 g/dL (30-55) 09/03/24 01:23 RDW 14.5 % (12.1-15.1) 09/03/24 01:23 Plt Count 229 10^3/cmm (157-399) 09/03/24 01:23 MPV 10.0 fL (7.4-10.4) 09/03/24 01:23 Neut % (Auto) 76.2 % 09/02/24 06:30 Lymph % (Auto) 16.9 % 09/02/24 06:30 [place] % (Auto) 5.3 % 09/02/24 06:30 Eos % (Auto) 0.9 % 09/02/24 06:30 Baso % (Auto) 0.3 % 09/02/24 06:30 Neut # (Auto) 6.06 10^3/uL (1.8-7.7) 09/02/24 06:30 Lymph # (Auto) 1.3 10^3/uL (0.8-4.8) 09/02/24 06:30 [place] # (Auto) 0.4 10^3/uL (0.2-0.9) 09/02/24 06:30 Eos # (Auto) 0.1 10^3/uL (0.0-0.8) 09/02/24 06:30 Baso # (Auto) 0.0 10^3/uL (0.0-0.1) 09/02/24 06:30 Nucleated RBC % (auto) 0 % 09/02/24 06:30 Nucleated RBCs # 0.0 /100WBC 09/02/24 06:30 Blood Type O Positive 09/02/24 06:30 Rho(D) Type Rh positive 09/02/24 06:30 Antibody Screen Negative 09/02/24 06:30 Vitals Last Vital Signs Temp 97.6 F 09/03/24 05:38 Pulse 80 09/03/24 05:38 Resp 16 09/03/24 05:38 BP 116/77 09/03/24 05:38 Pulse Ox 97 09/03/24 05:38 O2 Del Method Room Air 09/03/24 05:38 Discharge Plan Discharge Patient Disposition: Home Condition: Good Prescriptions: New ibuprofen 800 mg Tablet 800 mg PO TID Qty: 60 0RF Continued Vitamin Plus Low Iron 27 mg iron- 1 mg tablet 1 tab PO DAILY ferrous sulfate 325 mg (65 mg iron) tablet 325 mg PO DAILY Qty: 30 3RF Zyrtec 1 tab PO DAILY Discharge Orders: Discharge Order (Routine); Ordered 09/03/24 Ordered By: Toni Guadarrama Referrals: Toni Guadarrama MD [Primary Care Provider] - 10/15/24 9:30 am Discharge Diet: Regular Discharge Activity: Increase activity as tolerated Patient Instructions: Depression (DC), Bleeding (DC), Preeclampsia and Eclampsia After Delivery (GEN), Vaginal Delivery (DC), Hemorrhage (DC), OB Discharge Report, OB Food/Drug Interaction Guide, Opioid Safety, OB Home Care, OB Proud Parent Packet Activity Restrictions/Additional Instructions: Nothing per vagina for 6 weeks. Showers are recommended instead of baths for the first 6 weeks. Take your iron tablet daily for the next 3 to 4 weeks. Take her vitamin daily until you are done breast-feeding and for a minimum of 6 weeks. Discharge Attestations Time Spent in Discharge Care*: greater than 30 min Quality Metrics Clinical Quality Measures [ No reported AMI, CVA or VTE this stay] Coding Level of Care Code Acute Code for Chg Fwd Diagnoses Spontaneous vaginal delivery O80
[2024-09-03 10:42] VITALS: BP 115/79; PULSE 92; RESP 14; TEMP 36.6; O2SAT 96
[2024-09-03 15:40] VITALS: BP 125/79; PULSE 81; RESP 16; TEMP 36.4; O2SAT 99
== END 2024-09-03 15:40 | disposition home or self-care (01) | DRG 807 ==
LOC: OPOB 06:07 → OBGYN 06:07
PROVIDERS: Admitting Provider Family Medicine; PCP Family Medicine; Visit Provider Family Medicine
DX: O48.0 Post-term pregnancy (principal); Z37.0 Single live birth; Z3A.40 40 weeks gestation of pregnancy; O69.81X0 Labor and delivery complicated by cord around neck, without compression, not applicable or unspecified; O32.8XX0 Maternal care for other malpresentation of fetus, not applicable or unspecified
CPT/HCPCS: 36415; 51702; 59025; 59409; 85025; 85027; 86850; 86900; 99211; J2590; J2795; J7120; J7121

== ENCOUNTER → 2025-08-25 09:56 | Outpatient (BNVA) | payer OTHER, SELFPAY | PROVIDERS: PCP Family Medicine; Visit Provider Family Medicine | DX: Z01.419 Encounter for gynecological examination (general) (routine) without abnormal findings (principal) | CPT/HCPCS: 87624 ==

== ENCOUNTER → 2025-08-26 08:09 | Outpatient (BNVA) | payer OTHER, SELFPAY | PROVIDERS: PCP Family Medicine; Visit Provider Family Medicine | DX: Z13.6 Encounter for screening for cardiovascular disorders (principal); Z01.419 Encounter for gynecological examination (general) (routine) without abnormal findings; Z51.81 Encounter for therapeutic drug level monitoring; E55.9 Vitamin D deficiency, unspecified | CPT/HCPCS: 80053; 80061; 82306; 85025 ==